=== PATIENT | male | born 1990 | race Hispanic/Latino ===

== ENCOUNTER 2023-02-19 00:49 | Emergency (ER) | payer BC | END 2023-02-19 05:16 | disposition home or self-care (01) | LOC: ERS 00:49 | DX: R42 Dizziness and giddiness (principal) | CPT/HCPCS: 71045; 93005; 96360; 96361 ==

== ENCOUNTER 2023-02-20 01:11 | Emergency (ER) | payer OTHER, BC ==
[2023-02-20 02:04] LABS: #Eosinphils 0.1 thou/uL (0.0-0.7); #Lymphocytes 1.3 thou/uL (1.20-3.40); #Monocytes 0.3 thou/uL (0.11-0.59); #Neutrophils 5.6 thou/uL (1.40-6.50); %Basophils 0.3 % (0.0-1.0); %Eosinophils 0.9 % (0.0-10.0); %Lymphocytes 17.9 % (21.0-51.0); %Monocytes 4.2 % (0.0-10.0); %Neutrophils 76.7 % (42.0-75.0); Hemoglobin 14.4 g/dL (14.0-18.0); Mean Corpuscular HGB CONC 35.3 g/dL (32.0-36.0); Mean Corpuscular Hemoglobin 32.1 pg (27.0-31.0); Platelet Count 268 10x3/uL (130-400); RBC Distribution Width 11.4 % (11.5-14.5); Red Blood Cell (RBC) Count 4.48 mill/uL (4.70-6.10); White Blood Cell (WBC) Count 7.3 10x3/uL (4.8-10.8)
[2023-02-20] MEDS ORDERED: Ketorolac Tromethamine 30 MG/ML VIAL ONE (02:16)
[2023-02-20] MEDS ORDERED: Boostrix 0.5 ML (Tdap) VIAL (>/=7 yrs of age) ONE (02:16)
[2023-02-20 02:25] LABS: ALT (SGPT) 97 U/L (8-55); AST (SGOT) 102 U/L (5-34); Albumin 4.4 g/dL (3.5-5.0); Alcohol 200 mg/dL (Less than 10); Alkaline Phosphatase 73 U/L (40-110); Anion Gap 19 mmol/L (10-20); BUN (Urea Nitrogen) 12 mg/dL (8.9-20.6); Bilirubin, Total 0.2 mg/dL (0.2-1.2); Calc. Creatinine Clearance 0 mL/min (70-130); Calcium 8.7 mg/dL (7.8-10.44); Carbon Dioxide 17 mmol/L (22-29); Chloride 108 mmol/L (98-107); Estimated GFR 118; Globulin 3.3 g/dL (2.4-3.5); Glucose 109 mg/dL (70-105); Potassium 3.8 mmol/L (3.5-5.1); Protein, Total 7.7 g/dL (6.0-8.3); Sodium 140 mmol/L (136-145)
[2023-02-20] MEDS ORDERED: Iopamidol-370 76% 500 ML MDV (1 ML CHARGE) ONE (09:49)
== END 2023-02-20 03:52 | disposition home or self-care (01) ==
LOC: ERS 01:11
DX: S52.202A Unspecified fracture of shaft of left ulna, initial encounter for closed fracture (principal); S00.81XA Abrasion of other part of head, initial encounter; V09.9XXA Pedestrian injured in unspecified transport accident, initial encounter; Z23 Encounter for immunization
CPT/HCPCS: 29075; 36415; 70450; 70486; 71260; 72125; 74177; 80053; 80307; 85025; 90471; 90715; 96374; G0390; J1885; Q9967